=== PATIENT | male | born 1980 | race Caucasian/White ===

== ENCOUNTER 2017-08-12 07:49 | Emergency (ER) | payer BC ==
[~2017-08-12] VITALS: Ht 175.3 cm; Wt 122.5 kg
[~2017-08-12 07:49] MED LIST: COLACE100 MG PO; FLOMAX0.4 MG PO; NORCO 5-325 TA1 EACH PO; ZOFRAN ODT4 MG SL
--- OUTSIDE RECORDS SUMMARY | 2017-08-12 07:52 | XMS | Clinical Summary ---
Demographics + + + | Address | [address] | | | [place] [address] | + + + | Home Phone | | + + + | Preferred Language | Unknown | + + + | Marital Status | | + + + | Islam Affiliation | Unknown | + + + | Race | Unknown | + + + | Ethnic Group | Unknown | + + + Author + + + | Author | [facility] | + + + | Organization | [facility] | + + + | Address | Unknown | + + + | Phone | Unavailable | + + + Support + + + + + | Name | Relationship | Address | Phone | + + + + + | Susan Monterroso | ECON | [address] | | | | | [place] [address] | | + + + + + Care Team Providers + +------+ + | Care Acrylic Fabricator Name | Role | Phone | + +------+ + | Miryam Perrin PA-C | PP | | + +------+ + Allergies No Known Allergies Current Medications + + + +---------+------+------+-------+ | Prescription | Sig. | Disp. | Refills | Star | End | Statu | | | | | | t | Date | s | | | | | | Date | | | + + + +---------+------+------+-------+ | CELEXA 40 MG | TAKE ONE TABLET BY | 90 each | 3 | 08/0 | | Activ | | tablet | MOUTH EVERY DAY | | | 9/20 | | e | | | | | | 11 | | | + + + +---------+------+------+-------+ | metformin | Take 500 mg by mouth | | | | | Activ | | (GLUCOPHAGE) 500 MG | 2 (two) times daily | | | | | e | | tablet | with meals. | | | | | | + + + +---------+------+------+-------+ | clomiPHENE | Take 50 mg by mouth | | | | | Activ | | (CLOMID) 50 MG | daily. | | | | | e | | tablet | | | | | | | + + + +---------+------+------+-------+ | OMEGA-3 KRILL OIL | Take 300 mg by mouth | | | | | Activ | | 300 MG CAPS | 2 (two) times | | | | | e | | | daily. 2 capsules | | | | | | | | twice daily | | | | | | + + + +---------+------+------+-------+ | gemfibrozil | Take 600 mg by mouth | | | | | Activ | | (LOPID) 600 MG | daily. | | | | | e | | tablet | | | | | | | + + + +---------+------+------+-------+ | atorvastatin | Take 10 mg by mouth | | | | | Activ | | (LIPITOR) 10 MG | twice a week. Thursday | | | | | e | | tablet | and Thursday | | | | | | + + + +---------+------+------+-------+ | | Take 100 mg by mouth | | | | | Activ | | 5-Hydroxytryptophan | daily. | | | | | e | | (5-HTP) 100 MG CAPS | | | | | | | + + + +---------+------+------+-------+ | Multiple Vitamin | Take 1 tablet by | | | | | Activ | | (MULTIVITAMIN) | mouth daily. | | | | | e | | tablet | | | | | | | + + + +---------+------+------+-------+ | Cholecalciferol | Take 2,000 Units by | | | | | Activ | | (VITAMIN D3) 2000 | mouth. | | | | | e | | UNITS TABS | | | | | | | + + + +---------+------+------+-------+ | b complex vitamins | Take 1 tablet by | | | | | Activ | | tablet | mouth daily. | | | | | e | + + + +---------+------+------+-------+ | Vancomycin HCl in | Inject 2 g into the | | | | | Activ | | Dextrose (VANCOCIN | vein 2 (two) times | | | | | e | | HCL IV) | daily. | | | | | | + + + +---------+------+------+-------+ | | Take 1 tablet by | | | | | Activ | | hydrocodone-acetamin | mouth every 4 (four) | | | | | e | | ophen (NORCO) 10-325 | hours. | | | | | | | MG per tablet | | | | | | | + + + +---------+------+------+-------+ | disulfiram | Take 2 tablets every | 30 | 0 | 12/26 | | Activ | | (ANTABUSE) 250 MG | morning for 2 | tablet | | 11/13 | | e | | tabletIndications: | weeks; then decrease | | | 12 | | | | Alcohol abuse | to one a day. | | | | | | + + + +---------+------+------+-------+ | levothyroxine | Take 112 mcg by | | | | | Activ | | (SYNTHROID) 112 MCG | mouth every morning | | | | | e | | tablet | before breakfast. | | | | | | + + + +---------+------+------+-------+ | buPROPion | Take 300 mg by mouth | | | | | Activ | | (WELLBUTRIN XL) 300 | every morning. | | | | | e | | MG 24 hr tablet | | | | | | | + + + +---------+------+------+-------+ | | Take 25 mg by mouth | | | | | Activ | | hydrochlorothiazide | daily. | | | | | e | | (HYDRODIURIL) 25 MG | | | | | | | | tablet | | | | | | | + + + +---------+------+------+-------+ | loratadine | Take 10 mg by mouth | | | | | Activ | | (CLARITIN) 10 MG | daily. | | | | | e | | tablet | | | | | | | + + + +---------+------+------+-------+ Active Problems +---------+ + | Problem | Noted Date | +---------+ + | Obesity | 09/29/2011 | +---------+ + + + | Overview: Body mass index is 40.91 kg/(m^2). | | May require bariatric surgery | + + + + + | Alcohol abuse | 09/29/2011 | + + + | HLD (hyperlipidemia) | 09/29/2011 | + + + | Low testosterone | 09/29/2011 | + + + | Depression | | + + + Encounters +--------+ + + + + | Date | Type | Specialty | Care Team | Description | +--------+ + + + + | 07/21/ | Initial | | Randy Huang MD | Venous reflux | | 2018 | consult | | | (Primary Dx); | | | | | | Varicose veins of | | | | | | leg with pain, right | +--------+ + + + + | 06/09/ | Orders Only | | Romppel, | Varicose veins of | | 2017 | | | Elvie, NEEDLEWORKER | both lower | | | | | | extremities (Primary | | | | | | Dx) | +--------+ + + + + from Last 3 Months Family History + + +---------+ + | Medical History | Relation | Name | Comments | + + +---------+ + | Cancer | Father | Bogdan | stomach | | | | b55 | | + + +---------+ + | Diabetes type II | Father | Bogdan | | | | | b55 | | + + +---------+ + | Hypertension | Father | Bogdan | | | | | b55 | | + + +---------+ + | Cancer | Other | | breast | + + +---------+ + | Hypertension | Other | | abstracted | + + +---------+ + | Depression | Sister | Yina | | | | | b73 | | + + +---------+ + + + +--------+ + | Relation | Name | Status | Comments | + + +--------+ + | Father | Bogdan b55 | Alive | | + + +--------+ + | Mother | Krystin b54 | Alive | | + + +--------+ + | Other | | | | + + +--------+ + | Sister | Yina | Alive | | | | b73 | | | + + +--------+ + Social History + +-------+ +--------+------+ | Tobacco Use | Types | Packs/Day | Years | Date | | | | | Used | | + +-------+ +--------+------+ | Passive Smoke | | | | | | Exposure - Never | | | | | | Smoker | | | | | + +-------+ +--------+------+ + +---+---+---+ | Smokeless Tobacco: | | | | | Current User | | | | + +---+---+---+ + + | Tobacco Cessation: Ready to Quit: No | + + + + +---------+ + | Alcohol Use | Drinks/We | oz/Week | Comments | | | ek | | | + + +---------+ + | Yes | 24-36 | 0.0 | per week; 6 per setting | | | Cans of | | | | | beer | | | + + +---------+ + + + + | Sex Assigned at | Date Recorded | | | | + + + | Not on file | | + + + Last Filed Vital Signs + + + + | Vital Sign | Reading | Time Taken | + + + + | Blood Pressure | 114/72 | 07/21/2017 11:37 AM PDT | + + + + | Pulse | 70 | 07/21/2017 11:37 AM PDT | + + + + | Temperature | 36.8 C (98.3 F) | 01/12/2012 1:21 PM PDT | + + + + | Respiratory Rate | 14 | 07/21/2017 11:37 AM PDT | + + + + | Oxygen Saturation | 97% | 07/21/2017 11:37 AM PDT | + + + + | Inhaled Oxygen | - | - | | Concentration | | | + + + + | Weight | 126 kg (277 lb 12.8 | 07/21/2017 11:37 AM PDT | | | oz) | | + + + + | Height | 175.3 cm (5' 9") | 07/21/2017 11:37 AM PDT | + + + + | Body Mass Index | 41.02 | 07/21/2017 11:37 AM PDT | + + + + Plan of Treatment +--------+---------+ + + + | Date | Type | Specialty | Care Team | Description | +--------+---------+ + + + | 11/17/ | Office | | Jamila Hugo DNP | | | 2018 | Visit | | [address] | | | | | | [place] | | | | | | [phone] | | | | | | | | +--------+---------+ + + + + + + + + | Health Maintenance | Due Date | Last Done | Comments | + + + + + | Vaccine: | | | | | Dtap/Tdap/Td (1 - | 8 | | | | Tdap) | | | | + + + + + | Vaccine: | | | | | Pneumococcal 19-64 | 8 | | | | (PPSV23 only) Medium | | | | | Risk (1 of 1 - | | | | | PPSV23) | | | | + + + + + | Vaccine: Influenza | | | | | (Season Ended) | 8 | | | + + + + + Results US Lower Extremity Reflux/Insufficiency Bilateral (07/21/2017 10:52 AM) + + + | Specimen | Performing Laboratory | + + + | | [facility] [id number] [place] [address] | + + + + + | Impressions | + + | 1. No evidence DVT. 2. Spontaneous, phasic, and augmentable Doppler flow | | throughout both legs. 3. Venous insufficiency bilaterally as described above. | | 4. Right: Greater saphenous vein maintains linear course throughout the leg. | | Incompetent AASV (6.2 mm) which maintains a linear course until the mid thigh where at | | least the fascial sheath and becomes superficial. At the mid to distal thigh, AASV | | becomes tortuous and varicose with branches confluencing with the GSV at the distal | | thigh. 5. Right: Varicosities in the right calf confluence with the GSV at the | | proximal and mid calf. 6. Right: Incompetent perforators seen at the mid calf and | | proximal calf. 7. Left: Incompetent mid calf instrument calibrator. Electronically | | signed by Chris Crawley MD on 07/21/2017 11:13 AM | + + + + | Narrative | + + | BRANDO MONTERROSO US LOWER EXTREMITY REFLUX/INSUFFICIENCY BILAT HISTORY: 36 years. | | Male. Axial sprains of both lower extremities. TECHNIQUE: Grayscale, color-flow, | | and Doppler evaluation of the bilateral lower extremity venous system was performed to | | evaluate venous reflux. COMPARISON: None. FINDINGS: Greater saphenous vein | | diameter / depth / and grade of reflux: RIGHT Saphenofemoral junction: 0.5 cm / 2.8 | | cm / reflux > 1 sec Proximal thigh: 0.6 cm / 2.7 cm Mid thigh:0.4 cm / 3.0 cm / no | | reflux Distal thigh: 0.4 cm / 2.4 cm / no reflux Knee: 0.5 cm / 1.8 cm / > 1.0 sec | | Proximal calf: 0.3 cm / 1.1 cm / > 1.0 sec Mid calf: 0.4 cm / 1.1 cm / no reflux | | Distal calf: 0.4 cm / 0.8 cm / no reflux LEFT Saphenofemoral junction: 0.7 cm | | /3.2 cm / no reflux Proximal thigh:0.4 cm / 2.1 cm Mid thigh: 0.3 cm / 1.9 cm / no | | reflux Distal thigh: 0.4 cm / 2.3 cm / no reflux Knee: 0.3 cm / 2.0 cm / no reflux | | Proximal calf: 0.3 cm / 1.0 cm / no reflux Mid calf: 0.4 cm / 1.0 cm / no reflux | | Distal calf: 0.4 cm / 0.9 cm / no reflux Small saphenous veins: Small saphenous | | vein diameter / depth / and grade of reflux: RIGHT: Proximal Calf: 0.3 cm / 1.0 cm | | / no reflux Mid Calf: 0.3 cm / 1.2 cm / > 1.0 sec Distal Calf: 0.2 cm / 0.9 cm / no | | reflux LEFT: Proximal Calf: 0.4 cm / 1.0 cm / no reflux Mid Calf:0.3 cm / 1.0 cm / | | no reflux Distal Calf:0.3 cm / 0.6 cm / > 1.0 sec Deep venous system: Right | | Common femoral:reflux > 1 sec Femoral vein proximal:reflux > 0.5 secs Femoral vein | | mid:reflux > 1 sec Femoral vein distal:reflux > 0.5 secs Popliteal:no reflux | | Posterior tibial:no reflux Peroneal:no reflux Left: Common femoral:reflux > 0.5 | | secs Femoral vein proximal:no reflux Femoral vein mid:no reflux Femoral vein | | distal:reflux > 0.5 secs Popliteal:no reflux Peroneal:no reflux Posterior tibial:no | | reflux | + + + + | Procedure Note | + + | Robert Tierney Results In - 07/21/2017 11:18 AM PDT BRANDO E ILGUS LOWER EXTREMITY | | REFLUX/INSUFFICIENCY BILATHISTORY:36 years. Male. Axial sprains of both lower | | extremities.TECHNIQUE:Grayscale, color-flow, and Doppler evaluation of the bilateral | | lower extremity venous system was performed to evaluate venous | | reflux.COMPARISON:None.FINDINGS:Greater saphenous vein diameter / depth / and grade of | | reflux:RIGHTSaphenofemoral junction: 0.5 cm / 2.8 cm / reflux > 1 secProximal thigh: 0.6 | | cm / 2.7 cmMid thigh:0.4 cm / 3.0 cm / no refluxDistal thigh: 0.4 cm / 2.4 cm / no | | refluxKnee: 0.5 cm / 1.8 cm / > 1.0 secProximal calf: 0.3 cm / 1.1 cm / > 1.0 secMid | | calf: 0.4 cm / 1.1 cm / no refluxDistal calf: 0.4 cm / 0.8 cm / no | | refluxLEFTSaphenofemoral junction: 0.7 cm /3.2 cm / no refluxProximal thigh:0.4 cm / | | 2.1 cmMid thigh: 0.3 cm / 1.9 cm / no refluxDistal thigh: 0.4 cm / 2.3 cm / no | | refluxKnee: 0.3 cm / 2.0 cm / no refluxProximal calf: 0.3 cm / 1.0 cm / no refluxMid | | calf: 0.4 cm / 1.0 cm / no refluxDistal calf: 0.4 cm / 0.9 cm / no refluxSmall saphenous | | veins:Small saphenous vein diameter / depth / and grade of reflux:RIGHT:Proximal Calf: | | 0.3 cm / 1.0 cm / no refluxMid Calf: 0.3 cm / 1.2 cm / > 1.0 secDistal Calf: 0.2 cm / | | 0.9 cm / no refluxLEFT:Proximal Calf: 0.4 cm / 1.0 cm / no refluxMid Calf:0.3 cm / 1.0 | | cm / no refluxDistal Calf:0.3 cm / 0.6 cm / > 1.0 secDeep venous system:RightCommon | | femoral:reflux > 1 secFemoral vein proximal:reflux > 0.5 secsFemoral vein mid:reflux > 1 | | secFemoral vein distal:reflux > 0.5 secsPopliteal:no refluxPosterior tibial:no | | refluxPeroneal:no refluxLeft:Common femoral:reflux > 0.5 secsFemoral vein proximal:no | | refluxFemoral vein mid:no refluxFemoral vein distal:reflux > 0.5 secsPopliteal:no | | refluxPeroneal:no refluxPosterior tibial:no refluxIMPRESSION:1. No evidence DVT.2. | | Spontaneous, phasic, and augmentable Doppler flow throughout both legs.3. Venous | | insufficiency bilaterally as described above.4. Right: Greater saphenous vein maintains | | linear course throughout the leg. Incompetent AASV (6.2 mm) which maintains a linear | | course until the mid thigh where at least the fascial sheath and becomes superficial. At | | the mid to distal thigh, AASV becomes tortuous and varicose with branches confluencing | | with the GSV at the distal thigh.5. Right: Varicosities in the right calf confluence | | with the GSV at the proximal and mid calf.6. Right: Incompetent perforators seen at the | | mid calf and proximal calf.7. Left: Incompetent mid calf instrument calibrator.Electronically | | signed by Chris Crawley MD on 07/21/2017 11:13 AM | |Knee: 0.3 cm / 2.0 cm / no reflux | |Proximal calf: 0.3 cm / 1.0 cm / no reflux | |Mid calf: 0.4 cm / 1.0 cm / no reflux | |Distal calf: 0.4 cm / 0.9 cm / no reflux | | | |Small saphenous veins: | |Small saphenous vein diameter / depth / and grade of reflux: | | | |RIGHT: | |Proximal Calf: 0.3 cm / 1.0 cm / no reflux | |Mid Calf: 0.3 cm / 1.2 cm / > 1.0 sec | |Distal Calf: 0.2 cm / 0.9 cm / no reflux | | | |LEFT: | |Proximal Calf: 0.4 cm / 1.0 cm / no reflux | |Mid Calf:0.3 cm / 1.0 cm / no reflux | |Distal Calf:0.3 cm / 0.6 cm / > 1.0 sec | | | |Deep venous system: | |Right | |Common femoral:reflux > 1 sec | |Femoral vein proximal:reflux > 0.5 secs | |Femoral vein mid:reflux > 1 sec | |Femoral vein distal:reflux > 0.5 secs | |Popliteal:no reflux | |Posterior tibial:no reflux | |Peroneal:no reflux | | | |Left: | |Common femoral:reflux > 0.5 secs | |Femoral vein proximal:no reflux | |Femoral vein mid:no reflux | |Femoral vein distal:reflux > 0.5 secs | |Popliteal:no reflux | |Peroneal:no reflux | |Posterior tibial:no reflux | | | |IMPRESSION: | |1. No evidence DVT. | |2. Spontaneous, phasic, and augmentable Doppler flow throughout both legs. | |3. Venous insufficiency bilaterally as described above. | | | |4. Right: Greater saphenous vein maintains linear course throughout the leg. Incompetent A ASV (6.2 mm) which maintains a linear course until the mid thigh where at least the fascial sheath and becomes superficial. At | |the mid to distal thigh, AASV becomes tortuous and varicose with branches confluencing with the GSV at the distal thigh. | |5. Right: Varicosities in the right calf confluence with the GSV at the proximal and mid c leticia. | |6. Right: Incompetent perforators seen at the mid calf and proximal calf. | | | |7. Left: Incompetent mid calf instrument calibrator. | | | | | + + from Last 3 Months Insurance +---------+--------+ +------+-------+ + | Payer | Benefi | Subscriber | Type | Phone | Address | | | t Plan | ID | | | | | | / | | | | | | | Group | | | | | +---------+--------+ +------+-------+ + | PREMERA | PREMER | xxxxxxxxxxx | | | [address] [address] | | | A BLUE | [phone] | | | [place], [place] | | | CARD | | | | [phone] | +---------+--------+ +------+-------+ + + +--------+ +--------+ + + | Guarantor Name | Accoun | Relation to | Date | Phone | Billing Address | | | t Type | Patient | of | | | | | | | | | | + +--------+ +--------+ + + | BRANDO MONTERROSO | Person | Self [birth year] | Home: | [address] | | | al/Fam | | 1980 | [phone] [place] [address] | | | [place] | | [phone] | | + +--------+ +--------+ + +
--- OUTSIDE RECORDS SUMMARY | 2017-08-12 07:52 | XMS | Encounter Summary ---
Demographics + + + | Address | [address] | | | [place] [address] | + + + | Home Phone | | + + + | Preferred Language | Unknown | + + + | Marital Status | | + + + | Restorationist Affiliation | Unknown | + + + | Race | Unknown | + + + | Ethnic Group | Unknown | + + + Author + + + | Author | [facility] | + + + | Organization | [facility] | + + + | Address | Unknown | + + + | Phone | Unavailable | + + + Support + + + + + | Name | Relationship | Address | Phone | + + + + + | Susan Monterroso | ECON | [address] | | | | | [place] [address] | | + + + + + Care Team Providers + +------+ + | Care Brush Clearing Laborer Name | Role | Phone | + +------+ + PCP | Unavailable | + +------+ + Encounter Details +--------+ + + + + | Date | Type | Department | Care Team | Description | +--------+ + + + + | 06/09/ | Orders Only | [facility] | Romppel, | Varicose veins of | | 2017 | | Vascular Surgery | TRUNG Bermeo | both lower | | | | [address] | | extremities (Primary | | | | [place] | | Dx) | | | | [address] | | | | | | [phone] | | | +--------+ + + + + Social History + +-------+ +--------+------+ | [...] | | | + +---+---+---+ + + +---------+ + | Alcohol Use | Drinks/We | oz/Week | Comments | | | ek | | | + + +---------+ + | Yes | 24-36 | 0.0 | | | | Cans of | | | | | beer | | | + + +---------+ + + + + | Sex Assigned at | Date Recorded | | | | + + + | Not on file | | + + + as of this encounter Plan of Treatment +--------+---------+ + + + | Date | Type | Specialty | Care Team | Description | +--------+---------+ + + + | 11/17/ | Office | Vascular Surgery | Jamila Hugo DNP | | | 2018 | Visit | | [address] | | | | | | [place] | | | | | | [address] | | | | | | | | +--------+---------+ + + + as of this encounter Results Lower Extremity Reflux/Insufficiency Bilateral (07/21/2017 10:52 AM) + + + | Specimen | Performing Laboratory | + + + | | [address] [address] | + + + + + | [...] proximal calf. 7. Left: Incompetent mid calf residential service technician. Electronically | | signed by Chris Crawley [...] and proximal calf.7. Left: Incompetent mid calf residential service technician.Electronically | | signed by Chris Crawley MD [...] GSV at the proximal and mid c [facility]. | |6. Right: Incompetent perforators seen at the mid calf and proximal calf. | | | |7. Left: Incompetent mid calf residential service technician. | | | | | + + in this encounter Visit Diagnoses + + | Diagnosis | + + | Varicose veins of both lower extremities - Primary | + +"
--- OUTSIDE RECORDS SUMMARY | 2017-08-12 07:52 | XMS | Encounter Summary ---
Demographics + + + | Address | [address] | | | [place] [address] | + + + | Home Phone | | + + + | Preferred Language | Unknown | + + + | Marital Status | | + + + | Yarsani Affiliation | Unknown | + + + | Race | Unknown | + + + | Ethnic Group | Unknown | + + + Author + + + | Author | [facility] [employer] | + + + | Organization | [facility] [employer] [facility] | + + + | Address | Unknown | + + + | Phone | Unavailable | + + + Support + + + + + | Name | Relationship | Address | Phone | + + + + + | Susan Self | ECON | [address] | | | | | [place] [address] | | + + + + + Care Team Providers + +------+ + | Care Librarian Helper Name | Role | Phone | + +------+ + | Miryam Perrin PA-C | PCP | | + +------+ + Reason for Visit +--------+ + | Reason | Comments | +--------+ + | Other | varicose veins | +--------+ + Consult and Treat (Routine) + +--------+ + + + + | Status | Reason | Specialty | Diagnoses / | Referred By | Referred To | | | | | Procedures | Contact | Contact | + +--------+ + + + + | New Request | | Vascular | Diagnoses | Marychuy, | aRndy Huang | | | | Surgery | | STEPHANIE Witt | MD [address] | | | | | Asymptomatic | [address] | | | | | varicose | [place] | [address] | | | | | veins of | [address] | [place], [place] | | | | | right lower | [place], | [address] Phone: | | | | | extremity | [place] [address] | [phone] | | | | | | Phone: | Fax: | | | | | | [phone] | [phone] | | | | | | Fax: | | | | | | | [phone] | | + +--------+ + + + + Encounter Details +--------+ + + + + | Date | Type | Department | Care Team | Description | +--------+ + + + + | 07/21/ | Initial | [facility] | Randy Huang MD | Venous reflux | | 2018 | consult | Vascular Surgery | [address] | (Primary Dx); | | | | [address] | [place], [place] | Varicose veins of | | | | [place], [place] | [address] | leg with pain, right | | | | [address] | | | | | | [phone] | | | +--------+ + + + [...] + + + as of this encounter Last Filed Vital Signs + + + + | Vital Sign | Reading | Time Taken | + + + + | Blood Pressure | 114/72 | 07/21/2017 11:37 AM PDT | + + + + | Pulse | 70 | 07/21/2017 11:37 AM PDT | + + + + | Temperature | - | - | + + + + | Respiratory [...] AM PDT | + + + + in this encounter Instructions Patient Instructions - Laura Cason - 07/21/2017 11:30 AM PDTChronic venous insufficien cy a) Participate in daily exercise regimen with aerobic activity involving the lower extremit ies (i.e., walking, jogging, or bicycling) as this will improve lower extremity venous flow and maintain valvular incompetency. Engage in a daily exercise regimen for at least 30 minut es a day and five times a week. b) Avoid sitting for prolonged period of time (i.e., no continuous sitting more than 2 hour s). Avoid crossing legs when sitting as this causes leg compression which can lead to venous stasis and venous congestion. c) Maintain adequate fluid or water intake to avoid dehydration, which will reduce the risk of venous thromboembolism caused by the venous stasis. d) Elevate legs whenever possible e) Wear thigh-high compression stocking of 20-30mm Hg pressure gradient on a daily basis in this encounter Progress Notes Randy Huang MD - 07/21/2017 11:30 AM PDTFormatting of this note may be different from the original. [facility] [address] [place] [address] Office: [phone] DATE OF VISIT: 07/21/2017 PATIENT NAME: Keaton Self : 1980; AGE: 36 y.o.; Sex:M PHONE NUMBER: ; ; PHYSICIAN: Randy Huang PRIMARY CARE / REFERRING PHYSICIAN: Miryam Perrin, STEPHANIE / Miryam Perrin / [address] [place] [address] [address] / [place] [address] REASON FOR EVALUATION / CHIEF COMPLAINT: Evaluation and treatment of bilateral (right much greater than left) lower extremity swelling and varicose vein symptoms HISTORY OF PRESENT ILLNESS: Keaton Self is a 36 y.o. male patient who has been experiencing bilateral (right much greater than left) lower extremity swelling for the past 3 years. His clinical symptoms include swelling in lower extremity feet, ankle, and calf region. He states he does get swelling in the bilateral legs but his varicose veins and pain are only p resent in the right leg. He states he first noticed his varicose veins 3 years ago. The aleksandra ent's leg symptoms have gradually worsened. He states he has bulging, pain, and throbbing to the right leg associated with his varicose veins. He states he begins having pain in the ri ght leg after prolonged standing or with activity and states this causes his varicose veins to bulge. The patient states his swelling symptoms are improved with leg elevation and wo rsened with walking or placing the leg in dependent position. The patient reports leg and f oot pain when resting at night. The patient states that the symptoms of lower leg swelling h as affected his ability to perform daily activities. 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 Patient states he does not exercise regularly other than walking at work. T he patient has recently undergone a venous duplex ultrasound which demonstrated no eviden ce of lower extremity deep vein thrombosis. However, venous reflux with valvular insuffi ciency was present in the bilateral lower leg veins. The patient reports pain associated with his foot swelling. The patient has been using knee-high compression stocking to talib t his lower leg swelling for the last two months. He states the compression stockings help w ith his feet and ankle swelling but states they roll down and do not help with his calf swel ling or pain. The patient stated that He drinks 32 Oz of water for hydration daily but drink s approximately 64 ounces of iced tea daily. Regarding his anticoagulation regimen, the aleksandra ent is not taking blood thinning medications. Patient states his father and paternal aunt karla th have varicose veins. The patient is here for further evaluation of the lower extremity sw elling and right lower extremity varicose veins . PAST SURGICAL HISTORY: The patient has had a urethral constriction repair at age 3. PAST MEDICAL HISTORY: The patient has a past medical history of Depression (2010); Hyperli pidemia (2010); Hypothyroid; and Sleep apnea. FAMILY HISTORY: The patient's family history includes Cancer in his father and other; Depre ssion in his sister; Diabetes type II in his father; Hypertension in his father and other; V aricose veins in father and paternal aunt. CURRENT MEDICATIONS: Medication Sig b complex vitamins tablet Take 1 tablet by mouth daily. buPROPion (WELLBUTRIN XL) 300 MG 24 hr tablet Take 300 mg by mouth every morning. Cholecalciferol (VITAMIN D3) 2000 UNITS TABS Take 2,000 Units by mouth. hydrochlorothiazide (HYDRODIURIL) 25 MG tablet Take 25 mg by mouth daily. levothyroxine (SYNTHROID) 112 MCG tablet Take 112 mcg by mouth every morning before mateo akfast. loratadine (CLARITIN) 10 MG tablet Take 10 mg by mouth daily. Multiple Vitamin (MULTIVITAMIN) tablet Take 1 tablet by mouth daily. OMEGA-3 KRILL OIL 300 MG CAPS Take 300 mg by mouth 2 (two) times daily. 2 capsules twic e daily 5-Hydroxytryptophan (5-HTP) 100 MG CAPS Take 100 mg by mouth daily. atorvastatin (LIPITOR) 10 MG tablet Take 10 mg by mouth twice a week. Thursday and ay CELEXA 40 MG tablet TAKE ONE TABLET BY MOUTH EVERY DAY (Patient not taking: Reported on 07/21/2017) clomiPHENE (CLOMID) 50 MG tablet Take 50 mg by mouth daily. disulfiram (ANTABUSE) 250 MG tablet Take 2 tablets every morning for 2 weeks; then decr ease to one a day. (Patient not taking: Reported on 07/21/2017) gemfibrozil (LOPID) 600 MG tablet Take 600 mg by mouth daily. hydrocodone-acetaminophen (NORCO) 10-325 MG per tablet Take 1 tablet by mouth every 4 ( four) hours. metformin (GLUCOPHAGE) 500 MG tablet Take 500 mg by mouth 2 (two) times daily with meal s. Vancomycin HCl in Dextrose (VANCOCIN HCL IV) Inject 2 g into the vein 2 (two) times aaron ly. No Known Allergies SOCIAL HISTORY: reports that he is a non-smoker but has been exposed to tobacco smoke. He c hews tobacco but is planning to stop by his birthday next year. He reports that he drinks al cohol, approximately 24 beers a week. He reports that he does not use drugs. Patient is divo rced and has 1 child who lives with him. He has a girlfriend that also lives with him. 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 REVIEW OF SYSTEMS: General: negative for - night sweats, weight gain or weight loss Ophthalmic: negative for - decreased vision, double vision or loss of vision ENT: negative for - nasal congestion, oral lesions, sinus pain, earache, ear discharge, tin nitus. Neck: negative for - neck pain, neck stiffness, swollen gland, or thyroid enlargement. Respiratory: no cough, shortness of breath, wheezing, dyspnea, sputum production, or hemopt ysis. Cardiovascular: no chest pain, orthopnea, dyspnea on exertion Gastrointestinal: no abdominal pain, change in bowel habits, jaundice, constipation, or joe ck or bloody stools Genito-Urinary: no dysuria, trouble voiding, or hematuria Musculoskeletal: negative for - joint stiffness, joint swelling or bone pain Neurological: negative for - behavioral changes, headaches, impaired coordination, loss of balance, dizziness, seizure, memory loss or weakness. Positive for occasional tingling in th e bilateral feet. Dermatological: negative for - mole changes, nail changes, skin lesion changes, or skin dis coloration. Hematological and Lymphatic: negative for - bleeding problems, blood clots, bruising, fatig ue, swollen lymph nodes or history of anemia. Endocrine: negative for thyroid disease, heat or cold intolerance, polyuria, or polydipsia Psychiatric: negative for sleep disturbance, suicidal ideation, anxiety disorder, histo ry of hallucinations. Positive for depression Vascular: Positive for varicose veins and pain in the right leg and bilateral legs swelling VITAL SIGNS: BP 114/72 (BP Location: Right upper arm, Patient Position: Sitting) | Pulse 7 0 | Resp 14 | Ht 1.753 m (5' 9") | Wt 126 kg (277 lb 12.8 oz) | SpO2 97% | BMI 41.02 kg /m PHYSICAL EXAM: Constitutional: Well nourished, no signs of distress HENT: Non icteric sclerae, oropharynx clear. Normocephalic and atraumatic. Cranial nerves I IXI are grossly intact. Extraocular motor intact. Lymphadenopathy: He has no cervical, supraclavicular adenopathy Cardiovascular: Normal rate, regular rhythm Pulmonary/Chest: No respiratory distress. Abdominal: Soft. No abdominal distension or tenderness. No masses palpated and no hepatomeg ghada. No organomegaly. No abdominal pulsatile mass noted. Musculoskeletal: Normal range of motion. No evidence of arthritis. Extremities: No edema, cyanosis or clubbing. There was no focal muscle tenderness in bilate ral calf muscle groups. Neurological: He is alert and oriented. No muscle weakness and normal gait. VASCULAR: Palpable carotid, brachial, and radial pulses bilaterally. Palpable femoral pulse s were present bilaterally with palpable bilateral popliteal arterial pulses. Palpable pulse s were present in bilateral dorsalis pedis and posterior tibial arteries. Mild ankle swellin g bilaterally. Mild left calf swelling. Mild to moderate right calf swelling. Prominent vari cose veins in the right medial thigh, right medial knee, and right medial calf. Mild evidenc e of hyperpigmentation in the bilateral shins, right worse than left. No evidence of lipoder matosclerosis. IMAGINGS: Us Lower Extremity Reflux/insufficiency Bilateral Result Date: 07/21/2017 1. No evidence DVT. 2. Spontaneous, phasic, and augmentable Doppler flow throughout both legs. 3. Venous insufficiency bilaterally as described above. 4. Right: Greater saphenous vein maintains linear course throughout the leg. Incompetent AASV (6.2 mm) which maintains a linear course until the mid thigh where at least the fascial sheath and becomes superficial . At the mid to distal thigh, AASV becomes tortuous and varicose with branches confluencing with the GSV at the distal thigh. 5. Right: Varicosities in the right calf confluence with the GSV at the proximal and mid calf. 6. Right: Incompetent perforators seen at the mid ca lf and proximal calf. 7. Left: Incompetent mid calf cake batter mixer. SSMENT / PLAN: Chronic venous insufficiency with symptomatic bilateral (right much grea ter than left) lower extremity swelling and right leg varicose veins with pain g due to inc ompetent venous reflux. Given the patient s venous reflux condition, I recommend conservat samantha therapy for his chronic venous insufficiency. These treatment strategies include the fol lowings: a) participate in daily exercise regimen with aerobic activity involving the lower extremit ies (i.e., walking, jogging, or bicycling) as this will improve his lower extremity venous f low and maintain valvular incompetency. The patient is encouraged to engage in a daily exerc ise regimen for at least 30 minutes a day and five times a week. b) avoid sitting for prolonged period of time (i.e., no continuous sitting more than 2 hour s), avoid crossing his legs when sitting as this causes leg compression which can lead to ve nous stasis and venous congestion. c) maintain adequate fluid or water intake to avoid dehydration, which will reduce his risk of venous thromboembolism caused by the venous stasis. d) elevate legs whenever possible e) wear thigh-high compression stocking of 20-30 mm Hg pressure gradient on a daily basis. I ve discussed with the patient in details regarding the benefits and risks of above talib tment strategies, and the patient verbalizes understanding. The patient will return to vascu lar clinic in 3 months. If Mr. Self remains symptomatic when he returns in his next visit, we'll consider an outpati ent percutaneous procedure of saphenous vein ablation and varicose veins removal in an effor t to decrease his lower leg swelling and pain. Attending Note: Documentation assistance provided by Laura Cason (Scribryan). Information recorded by the scribe has been reviewed and validated by me. I ag ree with its contents. Signed by: Jaswant Sahni 07/21/17, 12:11 PM Randy Huang MD in this encounter Plan of Treatment +--------+---------+ + + + | Date | Type | Specialty | Care Team | Description | +--------+---------+ + + + | 11/17/ | Office | Vascular Surgery | Jamila Hugo DNP | | | 2017 | Visit | | [address] | | | | | | [place], [place] | | | | | | [address] | | | | | | | | +--------+---------+ + + + as of this encounter Visit Diagnoses + + | Diagnosis | + + | Venous reflux - Primary | + + | Unspecified venous (peripheral) insufficiency | + + | Varicose veins of leg with pain, right | + +
--- OUTSIDE RECORDS SUMMARY | 2017-08-12 07:53 | XMS | Encounter Summary ---
Demographics + + + | Address | [address] | | | [place] [address] | + + + | Home Phone | | + + + | Preferred Language | Unknown | + + + | Marital Status | | + + + | Oriental Orthodox Affiliation | Unknown | + + + | Race | Unknown | + + + | Ethnic Group | Unknown | + + + Author + + + | Author | [facility] [employer] | + + + | Organization | [facility] [employer] | + + + | Address | Unknown | + + + | Phone | Unavailable | + + + Support + + + + + | Name | Relationship | Address | Phone | + + + + + | Susan Self | ECON | [address] | | | | | [place] [address] | | + + + + + Care Team Providers + +------+ + | Care Molding Cutter Name | Role | Phone | + [...] | Vascular | Diagnoses | Marychuy, | Randy Huang | | | | Surgery | | STEPHANIE Witt | MD [address] | | | | | Asymptomatic | [address] | [address] | | | | | varicose | [place] | [address] | | | | | veins of | [address] | [place], [place] | | | | | right lower | [place], | [address] Phone: | | | | | extremity | [place] [address] | [phone] | | | | | | Phone: | Fax: | | | | | | [phone] | [phone] | | | | | | Fax: | | | | | | | [phone] | | + +--------+ + + + + Encounter Details +--------+ + + + + | Date | Type | Department | Care Team | Description | +--------+ + + + + | 07/21/ | Initial | [facility] | Randy Huang MD | Venous reflux | | 2018 | consult | Vascular Surgery | [address] | (Primary Dx); | | | | [address] | [place], [place] | Varicose veins of | | | | [place], [place] | [address] | leg with pain, right | | | | [address] | | | | | | [phone] | | | +--------+ + + + [...] note may be different from the original. [facility] [address] 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 REVIEW OF SYSTEMS: General: negative [...] proximal calf. 7. 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 SSMENT / PLAN: Chronic venous insufficiency with [...] | | | | | | E [place], [place] | | | | | | [address] | | | | | | | | +--------+---------+ + + + as of this encounter Visit Diagnoses + + | Diagnosis | + + | Venous reflux - Primary | + + | Unspecified venous (peripheral) insufficiency | + + | Varicose veins of leg with pain, right | + +
--- OUTSIDE RECORDS SUMMARY | 2017-08-12 07:53 | XMS | Clinical Summary ---
Demographics + + + | Address | [address] | | | [place] [address] | + + + | Home Phone | | + + + | Preferred Language | Unknown | + + + | Marital Status | Single | + + + | Zoroastrianism Affiliation | Unknown | + + + | Race | Unknown | + + + | Ethnic Group | Unknown | + + + Author + + + | Author | [facility] | | | and [place] | + + + | Organization | [facility] | | | and [place] | + + + | Address | Unknown | + + + | Phone | Unavailable | + + + Support + + +---------+ + | Name | Relationship | Address | Phone | + + +---------+ + | KERRY NAYAK | ECON | Unknown | | + + +---------+ + Care Team Providers + +------+ + | Care Hand Paint Mixer Name | Role | Phone | + +------+ + PP | Unavailable | + +------+ + Allergies Not on File Current Medications Not on file Active Problems Not on file Social History + +-------+ +--------+------+ | Tobacco Use | Types | Packs/Day | Years | Date | | | | | Used | | + +-------+ +--------+------+ | Never Assessed | | | | | + +-------+ +--------+------+ + + + | Sex Assigned at | Date Recorded | | | | + + + | Not on file | | + + + Plan of Treatment + + + + + | Health [...] | + + + + + Results Not on filefrom Last 3 Months"
--- OUTSIDE RECORDS SUMMARY | 2017-08-12 07:53 | XMS | Clinical Summary ---
Demographics + + + | Address | [address] | | | [place] [address] | + + + | Home Phone | | + + + | Preferred Language | Unknown | + + + | Marital Status | | + + + | Sabianism Affiliation | Unknown | + + + | Race | Unknown | + + + | Ethnic Group | Unknown | + + + Author + + + | Author | [facility] [employer] | + + + | Organization | [facility] [employer] | + + + | Address | Unknown | + + + | Phone | Unavailable | + + + Support + + + + + | Name | Relationship | Address | Phone | + + + + + | Susan Monterroso | ECON | [address] | | | | | [place] [address] | | + + + + + Care Team Providers + +------+ + | Care Landcare Officer Name | Role | Phone | + [...] | | 2017 | | | Elvie, TRANSPORTATION AGENT | both lower | | | | [...] [facility] | | | | | | [address] | | | | | | | [...] Laboratory | + + + | | [id number] [place] [address] | + + + + + | [...] proximal calf. 7. Left: Incompetent mid calf advice line rn. Electronically | | signed by Chris Crawley [...] and proximal calf.7. Left: Incompetent mid calf advice line rn.Electronically | | signed by Chris Crawley MD [...] | | |7. Left: Incompetent mid calf advice line rn. | | | | | + + [...] | [phone] | | | [address] [address] | | | A BLUE | x | | | [place], [place] | | | CARD | | | | [address] | +---------+--------+ +------+-------+ + + +--------+ +--------+ [...] | 1980 | [phone] | [place] [address] | | | [place] | | | [address] | | + +--------+ +--------+ + +
--- OUTSIDE RECORDS SUMMARY | 2017-08-12 07:54 | XMS | Encounter Summary ---
Demographics + + + | Address | [address] | | | [place] [address] | + + + | Home Phone | | + + + | Preferred Language | Unknown | + + + | Marital Status | | + + + | Taoism Affiliation | Unknown | + + + | Race | Unknown | + + + | Ethnic Group | Unknown | + + + Author + + + | Author | [facility] [employer] | + + + | Organization | [facility] [employer] | + + + | Address | Unknown | + + + | Phone | Unavailable | + + + Support + + + + + | Name | Relationship | Address | Phone | + + + + + | Susan Monterroso | ECON | [address] | | | | | [place] [address] | | + + + + + Care Team Providers + +------+ + | Care Otolaryngologist Name | Role | Phone | + +------+ + PCP | Unavailable | + +------+ + Encounter Details +--------+ + + + + | Date | Type | Department | Care Team | Description | +--------+ + + + + | 06/09/ | Orders Only | [facility] | Romppel, | Varicose veins of | | 2017 | | Vascular Surgery | TRUNG Bermeo | both lower | | | | [address] | | extremities (Primary | | | | [place] | | Dx) | | | | [address] | | | | | | [phone] | | | +--------+ + + + [...] | | | | | | [place] | | | | | | [address] | | | | | | | | +--------+---------+ + + + as of this encounter Results Lower Extremity Reflux/Insufficiency Bilateral (07/21/2017 10:52 AM) + + + | Specimen | Performing Laboratory | + + + | | [address] [address] | + + + + + | [...] proximal calf. 7. Left: Incompetent mid calf oral hygienist. Electronically | | signed by Chris Crawley [...] and proximal calf.7. Left: Incompetent mid calf oral hygienist.Electronically | | signed by Chris Crawley MD [...] GSV at the proximal and mid c fci. | |6. Right: Incompetent perforators seen at the mid calf and proximal calf. | | | |7. Left: Incompetent mid calf oral hygienist. | | | | | + + in this encounter Visit Diagnoses + + | Diagnosis | + + | Varicose veins of both lower extremities - Primary | + +"
--- OUTSIDE RECORDS SUMMARY | 2017-08-12 07:54 | XMS | Clinical Summary ---
Demographics + + + | Address | [address] | | | [place] [address] | + + + | Home Phone | | + + + | Preferred Language | Unknown | + + + | Marital Status | Single | + + + | Yarsani Affiliation | Unknown | + + + | Race | Unknown | + + + | Ethnic Group | Unknown | + + + Author + + + | Author | [facility] | | | and [place] | + + + | Organization | [facility] | | | and [...] Team Providers + +------+ + | Care Museum Curator Name | Role | Phone | + [...]
[2017-08-12] MEDS ORDERED: HYDROCHLOROTHIA25 MG PO (08:01)
[2017-08-12] MEDS ORDERED: BUPROPION XL300 MG PO (08:01)
[2017-08-12] MEDS ORDERED: SYNTHROID112 MCG PO (08:01)
[2017-08-12] MEDS ORDERED: ZOFRAN ODT4 MG PO (10:50)
[2017-08-12] MEDS ORDERED: NORCO 10-325 T1 EACH PO (10:50)
[2017-08-12] MEDS ORDERED: FLOMAX0.4 MG PO (10:50)
== END 2017-08-12 10:50 | disposition home or self-care (01) ==
LOC: ED 07:49
DX: N13.2 Hydronephrosis with renal and ureteral calculous obstruction (principal); I10 Essential (primary) hypertension; F32.9 Major depressive disorder, single episode, unspecified; E78.5 Hyperlipidemia, unspecified; Z87.442 Personal history of urinary calculi; Z79.899 Other long term (current) drug therapy
CPT/HCPCS: 74176; 80053; 81001; 85025; 96374; 96375; 99283; J1170; J1885; J2405; J7030